=== PATIENT | female | born 1945 | race Caucasian/White ===

== ENCOUNTER 2016-08-03 00:08 | Emergency (ER) | payer OTHER ==
[~2016-08-03] VITALS: Ht 157.5 cm; Wt 55.0 kg
[2016-08-03 00:19] VITALS: Ht 157.5 cm; Wt 55.0 kg
[2016-08-03] MEDS ORDERED: SOD CHLORIDE 0.9% 500 ML IV STA (00:26)
[2016-08-03 00:49] LABS: ADD SCAN DIFF NO
[2016-08-03 00:52] LABS: HEMATOCRIT 30.6 % (37.0-47.0); HEMOGLOBIN 9.4 g/dl (12.0-16.0); MEAN CORPUSCULAR HEMOGLOBIN 29.8 pg (29.0-33.0); MEAN CORPUSCULAR HGB CONC 30.7 g/dl (32.0-37.0); MEAN CORPUSCULAR VOLUME 97.1 fl (82.0-101.0); MEAN PLATELET VOLUME 12.3 fl (7.4-10.4); PLATELET COUNT 212 10^3/UL (140-415); RED BLOOD COUNT 3.15 10^6/ul (4.20-5.40); RED CELL DISTRIBUTION WIDTH 19.9 % (11.5-14.5); WHITE BLOOD COUNT 3.3 10^3/ul (4.8-10.8)
[2016-08-03 01:08] LABS: ALBUMIN 3.4 g/dl (3.3-4.9); ALBUMIN/GLOBULIN RATIO 0.87; BILIRUBIN,INDIRECT 0.1 mg/dl (0-1.1); BILIRUBIN,TOTAL 0.1 mg/dl (0.2-1.3); CALCIUM 9.2 mg/dl (8.4-10.2); CREATININE 0.51 mg/dl (0.44-1.00); POTASSIUM 3.7 mmol/L (3.5-5.1); TOTAL PROTEIN 7.3 g/dl (6.1-8.1)
[2016-08-03 01:35] LABS: EOSINOPHILS # 0.1 10^3/ul (0.0-0.5); LYMPHOCYTES # 0.5 10^3/ul (0.8-2.9); NEUTROPHIL # 2.7 10^3/ul (1.6-7.5)
[2016-08-03] MEDS ORDERED: CEFTRIAXONE 1 GM/50 ML (PMX) 50 ML IVPB ONE (03:30)
[2016-08-03 03:31] LABS: ADD UMIC YES; URINE BILIRUBIN (Dip) 1+ (NEGATIVE); URINE BLOOD (Dip) 3+ (NEGATIVE); URINE COLOR RED (YELLOW); URINE KETONES (Dip) NEGATIVE (NEGATIVE); URINE LEUKOCYTE ESTERASE (Dip) NEGATIVE (NEGATIVE); URINE NITRITE (Dip) POSITIVE (NEGATIVE); URINE TOTAL PROTEIN (Dip) 4+ (NEGATIVE); URINE UROBILINOGEN (Dip) 0.2 E.U./dL (0.1-1.0)
[2016-08-03 03:36] LABS: ICTOTEST NEGATIVE (NEGATIVE)
[2016-08-03 03:37] LABS: SQUAMOUS EPITHELIAL CELL,UR FEW; URINE RBCS >200 /HPF (0)
[2016-08-03 03:38] LABS: BACTERIA,URINE FEW
[2016-08-03 03:52] VITALS: TEMP 98.2
--- NOTE | 2016-08-03 04:09 | ERD ---
ER Documentation Chief Complaint Date/Time DATE: 08/03/16 TIME: 04:06 Chief Complaint sent from [facility] for bleeding around gomez cath. No report recieved HPI This is a 71-year-old female who presents to the emergency room after being sent from her [place] [facility] facility for bleeding around her Gomez catheter site. This patient does have an indwelling Gomez catheter. I am unable to obtain a detailed history secondary to this patient's dementia. The patient is not complaining of any pain at this time. ROS All systems reviewed and are negative except as per history of present illness. Physical Exam Vitals Vital Signs Date Time Temp Pulse Resp B/P Pulse Ox O2 Delivery O2 Flow Rate FiO2 08/03/16 03:52 98.2 87 16 127/90 98 Room Air 08/03/16 01:35 80 17 108/74 100 Room Air 08/03/16 00:19 98.7 84 20 112/70 97 Physical Exam INITIAL VITAL SIGNS: Reviewed by me GENERAL: The patient is well developed and appropriate for usual state of health in no apparent distress HEENT: Pupils equal, round, and reactive to light. EOMI. There is no scleral icterus. NECK: C-spine is soft and supple, there is no meningismus. There is no cervical lymphadenopathy. LUNGS: Clear to auscultation bilaterally. There are no rales, wheezes or rhonchi. HEART: Regular rate and rhythm, no murmurs, clicks, rubs or gallops. ABDOMEN: Soft, non-tender, non-distended. There are bowel sounds in all four quadrants. No rebound or guarding. EXTREMITIES: There is no peripheral cyanosis or edema. No focal swelling or erythema. NEUROLOGICAL: The patient moves all four extremities with 5/5 strength. Cranial nerves II - XII are intact. Normal gait. Alert and oriented SKIN: There is no apparent rash or petechiae. Genitourinary: Indwelling Gomez catheter with blood noted around the urethra. HEME/LYMPHATIC: There is no evidence of excessive bruising or lymphedema. PSYCHIATRIC: The patient does not appear anxious or depressed. Result Diagram: 08/03/16 0045 08/03/16 0045 Results 24 hrs Laboratory Tests Test 08/03/16 00:45 08/03/16 02:30 White Blood Count 3.310^3/ul Red Blood Count 3.1510^6/ul Hemoglobin 9.4g/dl Hematocrit 30.6% Mean Corpuscular Volume 97.1fl Mean Corpuscular Hemoglobin 29.8pg Mean Corpuscular Hemoglobin Concent 30.7g/dl Red Cell Distribution Width 19.9% Platelet Count 74308^3/UL Mean Platelet Volume 12.3fl Neutrophils % 83.0% Lymphocytes % 14.0% Monocytes % 1.0% Eosinophils % 2.0% Neutrophils # 2.710^3/ul Lymphocytes # 0.510^3/ul Monocytes # 0.010^3/ul Eosinophils # 0.110^3/ul Differential Comment MANUAL DIFF Sodium Level 137mmol/L Potassium Level 3.7mmol/L Chloride Level 100mmol/L Carbon Dioxide Level 29mmol/L Anion Gap 12 Blood Urea Nitrogen 24mg/dl Creatinine 0.51mg/dl Glucose Level 131mg/dl Calcium Level 9.2mg/dl Total Bilirubin 0.1mg/dl Direct Bilirubin 0.00mg/dl Indirect Bilirubin 0.1mg/dl Aspartate Amino Transf (AST/SGOT) 15IU/L Alanine Aminotransferase (ALT/SGPT) 18IU/L Alkaline Phosphatase 100IU/L Total Protein 7.3g/dl Albumin 3.4g/dl Globulin 3.90g/dl Albumin/Globulin Ratio 0.87 Lipase 70U/L Urine Color RED Urine Clarity CLOUDY Urine pH 8.0 Urine Specific Shushan 1.020 Urine Ketones NEGATIVE Urine Nitrite POSITIVE Urine Bilirubin 1+ Urine Ictotest NEGATIVE Urine Urobilinogen 0.2 E.U./dL Urine Leukocyte Esterase NEGATIVE Urine Microscopic RBC >200/HPF Urine Microscopic WBC 0-2/HPF Urine Squamous Epithelial Cells FEW Urine Bacteria FEW Urine Hemoglobin 3+ Urine Glucose 0.1%% Urine Total Protein 4+ Current Medications Medications (Trade) Dose Ordered Sig/Wanda Route PRN Reason Start Time Stop Time Status Last Admin Dose Admin Sodium Chloride 500 ml @ 500 mls/hr Q1H STAT IV 08/03/16 00:26 08/03/16 01:25 DC 08/03/16 00:35 Ceftriaxone Sodium (Rocephin) 50 ml @ 100 mls/hr ONCE ONCE IVPB 08/03/16 03:30 08/03/16 03:59 DC 08/03/16 03:50 Procedures/MDM This 71-year-old female presents to the emergency room for evaluation of blood around her Gomez catheter site. This patient does have a chronic indwelling Gomez catheter. When I evaluated this patient I did note some blood around the urethra. A new Gomez catheter was placed and this patient did have a multiple blood clots which did emerge. A three-way Gomez catheter was placed at that time, and the patient underwent bladder irrigation. Return from bladder irrigation is clear at this point. Urinalysis does reveal nitrite positive urine. The patient was given 1 g Rocephin. A new Gomez catheter was placed. No blood return at this time. This patient will be discharged at this time with a prescription for Macrobid, and outpatient neurology follow-up. Departure Diagnosis: Primary Impression: Complication of catheter Additional Impressions: Hematuria Normocytic anemia Condition: Stable GARCIA SANTOS DO Aug 03, 2016 04:09
[2016-08-03] MEDS ORDERED: NITR-58 PO (04:10)
[2016-08-03 05:21] VITALS: BP 108/77; PULSE 80; RESP 18
== END 2016-08-03 06:30 | disposition home or self-care (01) ==
LOC: E/R 00:08
DX: T83.098A Other mechanical complication of other urinary catheter, initial encounter (principal); D64.9 Anemia, unspecified; N30.01 Acute cystitis with hematuria; Y73.3 Surgical instruments, materials and gastroenterology and urology devices (including sutures) associated with adverse incidents
CPT/HCPCS: 80053; 81001; 83690; 85025; J0696; J7040; 36415; 81003; 96374